=== PATIENT | male | born 1980 | race Caucasian/White ===

== ENCOUNTER 2023-10-27 03:10 | Emergency (ER) | payer SELFPAY ==
[~2023-10-27] VITALS: Ht 177.8 cm; Wt 120.0 kg
[2023-10-27 03:22] VITALS: TEMP 98.1; O2SAT 97
[2023-10-27] MEDS: MORPHINE SULFATE 4 MG/ML INJ (FOR IV/IM USE) IM ONE (04:10)
[2023-10-27] MEDS ORDERED: NAPR-1074 MT (06:13)
[2023-10-27] MEDS ORDERED: HYDR-4001 MT (06:13)
[2023-10-27] MEDS: PROPOFOL 200MG/20ML VIAL IV ONE (06:20)
[2023-10-27 07:17] VITALS: BP 106/59; PULSE 75; RESP 18
== END 2023-10-27 07:20 | disposition home or self-care (01) ==
LOC: ER 03:10
DX: S42.432A Displaced fracture (avulsion) of lateral epicondyle of left humerus, initial encounter for closed fracture (principal); W18.39XA Other fall on same level, initial encounter; Y93.89 Activity, other specified; Y92.89 Other specified places as the place of occurrence of the external cause; Y99.8 Other external cause status
CPT/HCPCS: 73070; 73080; 73090; 73110; 24530; 96372; 99152; 99285; J2704; J2270; Z7610